=== PATIENT | female | born 1965 | race Caucasian/White ===

== ENCOUNTER 2018-01-04 05:12 | Emergency (ER) | payer SELFPAY ==
[~2018-01-04] VITALS: Ht 157.5 cm; Wt 75.0 kg
[~2018-01-04 05:12] MED LIST: ADVA250A INH; ALBU2.5I INH; ALBU6.7H INH; AMOX500T PO; AUGM875T PO; BENZ100 PO; CELE40TA PO; FEXO60TA PO; FIORIC PO; FIORTAB4 PO; GUAI100S6 PO; LEVA750T9 PO; LORA-474 PO; MELO15 PO; NEBUMIS6 XX; PANT20 PO; PARO20TA PO; PRED10PA PO; PRED20 PO; SYMB80AE INH; TRAM50TA PO; VENTAER INH
[2018-01-04 05:14] VITALS: BP 125/80; PULSE 114; RESP 24; TEMP 99.1; O2SAT 95
[2018-01-04] MEDS ORDERED: SODIUM CHLORIDE 0.9% FLUSH 10 ML FLUSH IVF PRN (05:45)
[2018-01-04] MEDS ORDERED: methylPREDNISolone SOD SUCC 125 MG/2 ML VIAL IV PUSH ONE (05:45)
--- NOTE | 2018-01-04 06:03 | RADRPT ---
EXAM DATE/TIME: 01/04/2018 05:51 [place] COMPARISON: No previous studies available for comparison. INDICATIONS : Shortness of breath, history of asthma. MEDICAL HISTORY : Asthma SURGICAL HISTORY : None. ENCOUNTER: Initial ACUITY: 1 day PAIN SCORE: 0/10 LOCATION: Bilateral chest FINDINGS: A single view of the chest demonstrates the lungs to be symmetrically aerated without evidence of mas s, infiltrate or effusion. The cardiomediastinal contours are unremarkable. Osseous structures are intact. CONCLUSION: No acute disease. There is no evidence of pneumonia. Ramiro Martinez MD on January 04, 2018 at 6:01 Board Certified Radiologist. This report was verified electronically.
--- NOTE | 2018-01-04 06:14 | PD ---
HPI . Asthma Chief Complaint: Respiratory Symptoms Time Seen by Provider: 05:36 Travel History International Travel<30 days: No Contact w/Intl Traveler<30days: No Traveled to known affect area: No History of Present Illness HPI This patient presents with the chief complaint of asthma. Onset has been a few days. She has used 3 nebulizer treatments in the past 5 hours and is still short of breath. She reports a cough productive of a "tinge" of yellow sputum just prior to arrival. She has not been running a fever. She is unaware of any exacerbating factors. Symptoms have been unrelieved by her albuterol. Symptoms are moderate. [facility] Past Medical History Asthma: Yes Anxiety: Yes Depression: Yes Heart Rhythm Problems: No Cardiovascular Problems: No High Cholesterol: Yes Diabetes: No Diminished Hearing: No Heparin Induced Thrombocytopen: No Hypertension: No Reproductive: Yes (ENDOMETRIOSIS) Respiratory: Yes (asthma) Immunizations Current: Yes Seizures: Yes (1 SEIZURE IN 2005 FOCAL SEIZURE LOST CONSCIOUSNESS) PNEUMOCCOCAL Vaccine (Year): 2007 ?: Not Menopausal: Yes : 0 Ovarian Cysts: Yes Past Surgical History Abdominal Surgery: Yes (LAP SURGERY 1990 & 1992 FOR ENDOMETRIOSIS) Gynecologic Surgery: Yes (SCAR TISSUE REMOVED FROM ENDOMETRIOSIS) Thoracic Surgery: Yes (RIGHT BREAST LUMPECTOMY 1986) Social History Alcohol Use: Yes (occas) Tobacco Use: No Substance Use: No Allergies-Medications (Allergen,Severity, Reaction): Coded Allergies: acetaminophen (Unverified Allergy, Severe, 01/04/18) hydrocodone (Unverified Allergy, Severe, 01/04/18) hydromorphone (Unverified Allergy, Severe, HIVES, 01/04/18) propoxyphene (Unverified Allergy, Severe, HIVES, 01/04/18) Reported Meds & Prescriptions Reported Meds & Active Scripts Active Review of Systems Except as stated in HPI: all other systems reviewed are Neg General / Constitutional: No: Fever, Chills Respiratory: Positive: Cough, Shortness of Breath, Wheezing Physical Exam Narrative GENERAL: Awake and alert and in no acute distress. SKIN: warm/dry. HEAD: Normocephalic. Atraumatic. EYES: Pupils equal and round. No scleral icterus. No injection or drainage. ENT: No nasal bleeding or discharge. Mucous membranes pink and moist. NECK: Trachea midline. Full range of motion without pain.. CARDIOVASCULAR: Regular rate and rhythm. Heart sounds are normal. RESPIRATORY: No accessory muscle use. Clear to auscultation. Breath sounds equal bilaterally. She does have an asthmatic sounding cough. MUSCULOSKELETAL: No obvious deformities. NEUROLOGICAL: Awake and alert. No obvious cranial nerve deficits. Motor grossly within normal limits. Normal speech. PSYCHIATRIC: Appropriate mood and affect; insight and judgment normal. Data Data Last Documented VS Vital Signs Date Time Temp Pulse Resp B/P (MAP) Pulse Ox O2 Delivery O2 Flow Rate FiO2 01/04/18 05:14 99.1 114 24 125/80 (95) 95 Orders Orders Basic Metabolic Panel (Bmp) (01/04/18 05:36) Complete Blood Count With Diff (01/04/18 05:36) Chest, Single Ap (01/04/18 05:36) Iv Access Insert/Monitor (01/04/18 05:36) Oximetry (01/04/18 05:36) Methylprednisolone So Succ Inj (Solumedr (01/04/18 05:45) Sodium Chloride 0.9% Flush (Ns Flush) (01/04/18 05:45) Magnesium Sulfate 1 Gm Premix (Magnesium (01/04/18 05:45) Labs Laboratory Tests Test 01/04/18 06:25 White Blood Count 7.3 TH/MM3 Red Blood Count 4.31 MIL/MM3 Hemoglobin 12.6 GM/DL Hematocrit 36.8 % Mean Corpuscular Volume 85.6 FL Mean Corpuscular Hemoglobin 29.3 PG Mean Corpuscular Hemoglobin Concent 34.2 % Red Cell Distribution Width 13.4 % Platelet Count 262 TH/MM3 Mean Platelet Volume 6.9 FL Neutrophils (%) (Auto) 60.3 % Lymphocytes (%) (Auto) 21.3 % Monocytes (%) (Auto) 4.9 % Eosinophils (%) (Auto) 12.9 % Basophils (%) (Auto) 0.6 % Neutrophils # (Auto) 4.4 TH/MM3 Lymphocytes # (Auto) 1.6 TH/MM3 Monocytes # (Auto) 0.4 TH/MM3 Eosinophils # (Auto) 0.9 TH/MM3 Basophils # (Auto) 0.0 TH/MM3 CBC Comment DIFF FINAL Differential Comment MDM Medical Decision Making Medical Screen Exam Complete: Yes Emergency Medical Condition: Yes Differential Diagnosis Differential diagnosis of dyspnea includes but is not limited to congestive heart failure, pneumonia, wheezing, pneumothorax, pulmonary embolism Narrative Course This patient presents with dyspnea. She has a history of asthma. She has had increasing symptoms for the last several days. Her symptoms have been unrelieved by albuterol nebs at home. Her lungs are clear does have an asthmatic sounding cough. I will treat her here with IV magnesium and Solu-Medrol. Chest x-ray is negative. It has been independently viewed by me. CBC Diagram 01/04/18 06:25 This patient is medically clear for discharge. I will give her a prescription for prednisone. Diagnosis Primary Impression: Asthma Qualified Codes: J45.21 - Mild intermittent asthma with (acute) exacerbation Patient Instructions: Asthma (DC), General Instructions Med/Other Pt SpecificInfo: Prescription(s) given Scripts Prednisone (Prednisone) 50 Mg Tab 50 MG PO DAILY for 5 Days, #5 TAB 0 Refills Prov: Nelly Lemus MD 01/04/18 Disposition: 01 DISCHARGE HOME Condition: Stable Nelly Lemus MD Jan 04, 2018 06:14
[2018-01-04] MEDS: MAGNESIUM SULFATE 1 GM PREMIX 100 ML IV SCH ×2 (06:30→07:42)
[2018-01-04 06:46] LABS: AUTOMATED NEUTROPHIL # 4.4 TH/MM3 (1.8-7.7); BASOPHIL % 0.6 % (0.0-2.0); EOSINOPHIL # 0.9 TH/MM3 (0-0.4); EOSINOPHIL % 12.9 % (0.0-4.0); HEMATOCRIT 36.8 % (35.0-46.0); HEMOGLOBIN 12.6 GM/DL (11.6-15.3); LYMPH % 21.3 % (9.0-44.0); LYMPHOCYTE # 1.6 TH/MM3 (1.0-4.8); MEAN CELL VOLUME 85.6 FL (80.0-100.0); MEAN CORPUSCULAR HEMOGLOBIN 29.3 PG (27.0-34.0); MEAN CORPUSCULAR HGB CONC 34.2 % (32.0-36.0); MEAN PLATELET VOLUME 6.9 FL (7.0-11.0); MONO % 4.9 % (0.0-8.0); MONOCYTE # 0.4 TH/MM3 (0-0.9); NEUT % 60.3 % (16.0-70.0); PLATELET COUNT 262 TH/MM3 (150-450); RED BLOOD COUNT 4.31 MIL/MM3 (4.00-5.30); RED CELL DISTRIBUTION WIDTH 13.4 % (11.6-17.2); WHITE BLOOD COUNT 7.3 TH/MM3 (4.0-11.0)
[2018-01-04] MEDS ORDERED: PANT20 PO (06:49)
[2018-01-04] MEDS ORDERED: BUTA1CAP PO (06:49)
[2018-01-04] MEDS ORDERED: DULE100A INH (06:49)
[2018-01-04] MEDS ORDERED: CELE40TA PO (06:49)
[2018-01-04] MEDS ORDERED: ALBU.5I NEB (06:49)
[2018-01-04] MEDS ORDERED: ALLE60TA PO (06:49)
[2018-01-04] MEDS ORDERED: LORA-474 PO (06:49)
[2018-01-04] MEDS ORDERED: PRED50 PO (06:51)
[2018-01-04 07:07] LABS: BICARBONATE 28.4 MEQ/L (21.0-32.0); CALCIUM 8.7 MG/DL (8.5-10.1); CREATININE 0.93 MG/DL (0.50-1.00)
[2018-01-04 07:44] VITALS: BP 119/84; PULSE 78; RESP 24; O2SAT 96
== END 2018-01-04 09:33 | disposition home or self-care (01) ==
LOC: NEPC 05:12
DX: J45.21 Mild intermittent asthma with (acute) exacerbation (principal); E78.00 Pure hypercholesterolemia, unspecified; F41.9 Anxiety disorder, unspecified; F32.9 Major depressive disorder, single episode, unspecified; Z88.5 Allergy status to narcotic agent; Z79.899 Other long term (current) drug therapy
CPT/HCPCS: 71045; 80048; 85025; 96365; 96366; 96367; 96375; 99284; J2930; J3475